=== PATIENT | male | born 1980 | race Caucasian/White ===

== ENCOUNTER 2020-06-22 11:02 | Emergency (ER) | payer SELFPAY ==
[~2020-06-22] VITALS: Ht 182 cm; Wt 81.0 kg
--- NOTE | 2020-06-22 11:22 | ED General ---
General Chief Complaint: General Problems/Pain Stated Complaint: CONFUSION Source of Information: Patient Exam Limitations: No Limitations History of Present Illness Date Seen by Provider: Jun 22, 2020 Time Seen by Provider: 11:14 Initial Comments 40-year-old male presents with visual hallucinations. Patient reports that they started about 2 months ago. Initially they were and free But slightly more frequent now. Patient thinks it has to do with an adjustment in his Ambien that started a couple months ago. Patient has brought it up one time this primary care provider but none other. Patient is brought in today because last night he was out" cold all night running from what he thought was simply chasing him. Pat darwin admits to daily alcohol use and marijuana use whenever he can get it. Patient denies any cough, fever, nausea, vomiting or diarrhea. Patient does admit being chilled initially rating from being out in the weather. Allergies and Home Medications Allergies Coded Allergies: Penicillins (Verified Allergy, Unknown, 06/22/20) Patient Home Medication List Home Medication List Reviewed: Yes Review of Systems Review of Systems Constitutional: see HPI, chills EENTM: no symptoms reported Respiratory: No cough, No short of breath Cardiovascular: No chest pain, No palpitations Gastrointestinal: No abdominal pain, No nausea, No vomiting Genitourinary: no symptoms reported Musculoskeletal: no symptoms reported Skin: no symptoms reported Psychiatric/Neurological: See HPI Hematologic/Lymphatic: No Symptoms Reported Past Yaiqamy-Ezolla-Unmybl Hx Past Med/Social Hx: Reviewed Nursing Past Med/Soc Hx Patient Social History Physical Abuse: No Sexual Abuse: No Mistreated: No Fear: No Physical Exam Vital Signs Vital Signs - First Documented 06/22/20 11:08 Temp 35.8 Pulse 108 Resp 18 B/P (MAP) 144/104 (117) Pulse Ox 100 O2 Delivery Room Air Capillary Refill : Height, Weight, BMI Height: '" Weight: lbs. oz. 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 No active hallucinations at this time) Skin: Cool Progress/Results/Core Measures Suspected Sepsis SIRS Temperature: Pulse: Respiratory Rate: Laboratory Tests 06/22/20 11:29: White Blood Count 14.0H Blood Pressure / Mean: Laboratory Tests 06/22/20 11:29: Creatinine 0.76, Platelet Count 236, Total Bilirubin 1.4H Results/Orders Lab Results Laboratory Tests Test 06/22/20 11:05 06/22/20 11:29 Range/Units Urine Color ANNE H Urine Clarity CLEAR Urine pH 5.5 5-9 Urine Specific [place] >=1.030 1.016-1.022 Urine Protein 2+ H NEGATIVE Urine Glucose (UA) NEGATIVE NEGATIVE Urine Ketones 3+ H NEGATIVE Urine Nitrite NEGATIVE NEGATIVE Urine Bilirubin 1+ H NEGATIVE Urine Urobilinogen 0.2 < = 1.0 MG/DL Urine Leukocyte Esterase NEGATIVE NEGATIVE Urine RBC (Auto) 3+ H NEGATIVE Urine RBC 0-2 /HPF Urine WBC 2-5 /HPF Urine Squamous Epithelial Cells 0-2 /HPF Urine Crystals NONE /LPF Urine Bacteria TRACE /HPF Urine Casts PRESENT /LPF Urine Hyaline Casts 10-25 H /LPF Urine Mucus MODERATE H /LPF Urine Culture Indicated NO Urine Opiates Screen NEGATIVE NEGATIVE Urine Oxycodone Screen POSITIVE H NEGATIVE Urine Methadone Screen NEGATIVE NEGATIVE Urine Propoxyphene Screen NEGATIVE NEGATIVE Urine Barbiturates Screen NEGATIVE NEGATIVE Ur Tricyclic Antidepressants Screen NEGATIVE NEGATIVE Urine Phencyclidine Screen NEGATIVE NEGATIVE Urine Amphetamines Screen POSITIVE H NEGATIVE Urine Methamphetamines Screen NEGATIVE NEGATIVE Urine Benzodiazepines Screen NEGATIVE NEGATIVE Urine Cocaine Screen NEGATIVE NEGATIVE Urine Cannabinoids Screen POSITIVE H NEGATIVE White Blood Count 14.0 H 4.3-11.0 10^3/uL Red Blood Count 4.92 4.35-5.85 10^6/uL Hemoglobin 15.9 13.3-17.7 G/DL Hematocrit 46 40-54 % Mean Corpuscular Volume 94 80-99 FL Mean Corpuscular Hemoglobin 32 25-34 PG Mean Corpuscular Hemoglobin Concent 35 32-36 G/DL Red Cell Distribution Width 13.1 10.0-14.5 % Platelet Count 236 130-400 10^3/uL Mean Platelet Volume 10.6 H 7.4-10.4 FL Immature Granulocyte % (Auto) 0 % Neutrophils (%) (Auto) 87 H 42-75 % Lymphocytes (%) (Auto) 6 L 12-44 % Monocytes (%) (Auto) 7 0-12 % Eosinophils (%) (Auto) 0 0-10 % Basophils (%) (Auto) 0 0-10 % Neutrophils # (Auto) 12.0 H 1.8-7.8 X 10^3 Lymphocytes # (Auto) 0.8 L 1.0-4.0 X 10^3 Monocytes # (Auto) 1.0 0.0-1.0 X 10^3 Eosinophils # (Auto) 0.0 0.0-0.3 10^3/uL Basophils # (Auto) 0.0 0.0-0.1 10^3/uL Immature Granulocyte # (Auto) 0.1 0.0-0.1 10^3/uL Neutrophils % (Manual) 82 % Lymphocytes % (Manual) 6 % Monocytes % (Manual) 5 % Eosinophils % (Manual) 0 % Basophils % (Manual) 1 % Band Neutrophils 6 % Blood Morphology Comment NORMAL Sodium Level 135 135-145 MMOL/L Potassium Level 3.9 3.6-5.0 MMOL/L Chloride Level 93 L 98-107 MMOL/L Carbon Dioxide Level 20 L 21-32 MMOL/L Anion Gap 22 H 5-14 MMOL/L Blood Urea Nitrogen 30 H 7-18 MG/DL Creatinine 0.76 0.60-1.30 MG/DL Estimat Glomerular Filtration Rate > 60 BUN/Creatinine Ratio 39 Glucose Level 62 L 70-105 MG/DL Calcium Level 9.4 8.5-10.1 MG/DL Corrected Calcium 8.5-10.1 MG/DL Total Bilirubin 1.4 H 0.1-1.0 MG/DL Aspartate Amino Transf (AST/SGOT) 57 H 5-34 U/L Alanine Aminotransferase (ALT/SGPT) 26 0-55 U/L Alkaline Phosphatase 86 40-136 U/L Total Protein 8.1 6.4-8.2 GM/DL Albumin 5.1 H 3.2-4.5 GM/DL Salicylates Level 0.4 L 5.0-20.0 MG/DL Acetaminophen Level < 10 L 10-30 UG/ML Serum Alcohol < 10 <10 MG/DL My Orders Orders - BRASHER,KAT L DO Ua Culture If Indicated (06/22/20 11:16) Cbc With Automated Diff (06/22/20 11:16) Comprehensive Metabolic Panel (06/22/20 11:16) Alcohol (06/22/20 11:16) Drug Screen Stat (Urine) (06/22/20 11:16) Acetaminophen (06/22/20 11:16) Salicylate (06/22/20 11:16) Ekg Tracing (06/22/20 11:16) Ed Iv/Invasive Line Start (06/22/20 11:16) Monitor-Rhythm Ecg Trace Only (06/22/20 11:16) Ed Iv/Invasive Line Start (06/22/20 11:16) Creatine Kinase (06/22/20 11:16) Manual Differential (06/22/20 11:29) Lactated Ringers (Lr 1000 Ml Iv Solution (06/22/20 12:39) Ns Iv 1000 Ml (Sodium Chloride 0.9%) (06/22/20 12:38) Vital Signs/I&O 06/22/20 11:08 Temp 35.8 Pulse 108 Resp 18 B/P (MAP) 144/104 (117) Pulse Ox 100 O2 Delivery Room Air Capillary Refill : Progress Note : Time: 14:02 Progress Note Patient was evaluated by mental health screening. Patient is having hallucinations but no thoughts of self-harm or homicidal ideations. They feel that patient hallucinations are likely medication induced. They do have an appointment for him on Sunday 06/24. Patient is signing a safety plan, we will stop his Ambien. Patient is discharged home in stable condition ECG Initial ECG Impression Date: Jun 22, 2020 Initial ECG Impression Time: 11:29 Initial ECG Rhythm: Normal Sinus, PAC Initial ECG Impression: Nonspecific Changes Comment HR 72, PAC, RBBB, non specific changes, no acute changes. Departure Impression Primary Impression: Hallucinations, visual Disposition: 01 HOME, SELF-CARE Condition: Stable Departure-Patient Inst. Patient Instructions: Acute Psychosis (DC), Evaluating Memory and Thinking Problems Add. Discharge Instructions: Keep your appointment with mental health professionals for further outpatient evaluation All discharge instructions reviewed with patient and/or family. Voiced understanding. KAT BRASHER DO Jun 22, 2020 11:22
[2020-06-22 11:37] LABS: AMPHETAMINE SCREEN, URINE POSITIVE (NEGATIVE); BARBITURATE SCREEN URINE NEGATIVE (NEGATIVE); BENZODIAZEPINES SCREEN URINE NEGATIVE (NEGATIVE); CANNABINOID SCREEN, URINE POSITIVE (NEGATIVE); COCAINE SCREEN URINE NEGATIVE (NEGATIVE); METHADONE STAT NEGATIVE (NEGATIVE); METHAMPHETAMINE SCREEN URINE S NEGATIVE (NEGATIVE); OPIATE SCREEN URINE NEGATIVE (NEGATIVE); OXYCODONE STAT POSITIVE (NEGATIVE); PROPOXYPHENE STAT NEGATIVE (NEGATIVE); TRICYCLIC ANTIDEPRESSANTS SCRE NEGATIVE (NEGATIVE)
[2020-06-22 11:44] LABS: CLARITY,URINE CLEAR; COLOR,URINE AMBER; GLUCOSE, URINE (UA) NEGATIVE (NEGATIVE); KETONES,URINE 3+ (NEGATIVE); NITRITE,URINE NEGATIVE (NEGATIVE); PH,URINE 5.5 (5-9); PROTEIN,URINE 2+ (NEGATIVE)
[2020-06-22 11:45] LABS: BILIRUBIN,URINE 1+ (NEGATIVE); LEUKOCYTE ESTERASE ,URINE NEGATIVE (NEGATIVE)
[2020-06-22 11:49] LABS: BACTERIA,URINE TRACE /HPF; RBC,URINE 0-2 /HPF; SQUAMOUS EPITHELIAL CELL,UR 0-2 /HPF
[2020-06-22 11:57] LABS: BASOPHILS % (AUTO) 0 % (0-10); EOSINOPHILS % (AUTO) 0 % (0-10); HEMATOCRIT 46 % (40-54); HEMOGLOBIN 15.9 G/DL (13.3-17.7); LYMPHOCYTES # (AUTO) 0.8 X 10^3 (1.0-4.0); LYMPHOCYTES % (AUTO) 6 % (12-44); MEAN CORPUSCULAR HEMOGLOBIN 32 PG (25-34); MEAN CORPUSCULAR HGB CONC 35 G/DL (32-36); MEAN CORPUSCULAR VOLUME 94 FL (80-99); MEAN PLATELET VOLUME 10.6 FL (7.4-10.4); MONOCYTES % (AUTO) 7 % (0-12); NEUTROPHILS % (AUTO) 87 % (42-75); PLATELET COUNT 236 10^3/uL (130-400)
[2020-06-22 12:06] LABS: BAND NEUTROPHILS 6 %; BASOPHILS % (MANUAL) 1 %; EOSINOPHILS % (MANUAL) 0 %; LYMPHOCYTES % (MANUAL) 6 %; MONOCYTES % (MANUAL) 5 %; NEUTROPHILS % (MANUAL) 82 %
[2020-06-22 12:07] LABS: RBC MORPH NORMAL
[2020-06-22 12:09] LABS: BUN/CREATININE RATIO 39; CALCIUM 9.4 MG/DL (8.5-10.1); CARBON DIOXIDE 20 MMOL/L (21-32); CHLORIDE 93 MMOL/L (98-107); CREATININE SERUM 0.76 MG/DL (0.60-1.30); GFR ESTIMATED > 60; GLUCOSE 62 MG/DL (70-105); POTASSIUM 3.9 MMOL/L (3.6-5.0); SODIUM 135 MMOL/L (135-145)
[2020-06-22 12:10] LABS: ACETAMINOPHEN < 10 UG/ML (10-30); ALANINE AMINOTRANSFERASE 26 U/L (0-55); ALBUMIN 5.1 GM/DL (3.2-4.5); ALKALINE PHOSPHATASE 86 U/L (40-136); BILIRUBIN,TOTAL 1.4 MG/DL (0.1-1.0); SALICYLATE 0.4 MG/DL (5.0-20.0); TOTAL PROTEIN 8.1 GM/DL (6.4-8.2)
[2020-06-22] MEDS ORDERED: NS IV 1000 ML 1,000 ML ONE (12:38)
[2020-06-22] MEDS ORDERED: LACTATED RINGERS 1,000 ML IV STA (12:39)
[2020-06-22 14:08] VITALS: BP 120/85
--- NOTE | 2020-06-22 14:14 | NUR ---
PT SCREENED BY [facility] AFTER HOURS AND PT WILL GO HOME ON A SAFETY PLAN ANDD/C THE BATSHEVA.
[2020-06-22 14:45] LABS: CREATINE KINASE 814 U/L (30-200)
== END 2020-06-22 14:30 | disposition home or self-care (01) ==
LOC: ER FS 11:04
DX: R44.1 Visual hallucinations (principal); F41.9 Anxiety disorder, unspecified; Z88.0 Allergy status to penicillin
CPT/HCPCS: 36415; 80053; 80306; 81000; 82550; 85007; 85027; 93041; 99284; G0480 ×3; 80320; 80329; 93005

== ENCOUNTER 2021-04-06 04:53 | Emergency (ER) | payer MEDICAID ==
[2021-04-06] MEDS ORDERED: IBUPROFEN 600 MG (MOTRIN) TAB PO ONE (05:15)
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
[2021-04-06] MEDS ORDERED: OXYC1TAB11 PO (05:42)
[2021-04-06 05:46] VITALS: BP 138/101
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
== END 2021-04-06 05:46 | disposition home or self-care (01) ==
LOC: EDUNIT# 04:53 → EDBD 04:57 → ER FS 04:57
DX: S62.326A Displaced fracture of shaft of fifth metacarpal bone, right hand, initial encounter for closed fracture (principal); Y04.8XXA Assault by other bodily force, initial encounter
CPT/HCPCS: 73130